=== PATIENT | male | born 1990 | race African-American/Black ===

== ENCOUNTER 2021-12-26 01:35 | Emergency (ER) | payer SELFPAY ==
[~2021-12-26] VITALS: Ht 167.6 cm; Wt 76.4 kg
[~2021-12-26 01:35] MED LIST: PRED20TA PO; PROAAER10 INH; ZITHTAB PO
[2021-12-26 01:40] VITALS: BP 128/77
[2021-12-26] MEDS ORDERED: IPRATROPIUM 0.5MG/ALBUTEROL 2.5MG INH SOL UD 3ML (DUONEB) NEB ONE (06:20)
[2021-12-26] MEDS ORDERED: ALBUTEROL 90 MCG/ACT 8GM HFA INHALER INH ONE (06:30)
== END 2021-12-26 06:58 | disposition home or self-care (01) ==
LOC: M ED 01:35
DX: J45.909 Unspecified asthma, uncomplicated (principal); F91.8 Other conduct disorders; Z91.010 Allergy to peanuts

== ENCOUNTER 2021-12-28 05:15 | Emergency (ER) | payer SELFPAY ==
[2021-12-28 06:00] VITALS: BP 116/67
[2021-12-28 06:11] LABS: BASO % 0.2 % (0.0-1.0); EOS # 0.1 10^3/uL (0.0-0.5); EOS % 0.8 % (0.0-3.0); HEMATOCRIT 46.3 % (42.0-52.0); HEMOGLOBIN 15.4 g/dl (13.5-17.5); LYMPH # 1.3 10^3/uL (1.5-5.0); LYMPH % 9.4 % (24.0-44.0); MEAN CORPUSCULAR HEMOGLOBIN 32.2 pg (27.0-33.0); MEAN CORPUSCULAR HGB CONC 33.3 g/dl (32.0-36.5); MEAN CORPUSCULAR VOLUME 96.9 fl (80.0-96.0); MONO # 0.9 10^3/uL (0.0-0.8); MONO % 6.2 % (2.0-8.0); NEUTROPHILS # 11.8 10^3/uL (1.5-8.5); PLATELET COUNT, AUTOMATED 228 10^3/uL (150-450); RED BLOOD COUNT 4.78 10^6/uL (4.30-6.10); WHITE BLOOD COUNT 14.2 10^3/uL (4.0-10.0)
[2021-12-28 06:23] LABS: BLOOD UREA NITROGEN 11 MG/DL (7-18); CALCIUM LEVEL 9.1 MG/DL (8.5-10.1); CARBON DIOXIDE LEVEL 26 MEQ/L (21-32); CHLORIDE LEVEL 107 MEQ/L (98-107); CREATININE FOR GFR 1.19 MG/DL (0.70-1.30); GLOMERULAR FILTRATION RATE > 60.0 (>60); GLUCOSE, FASTING 99 MG/DL (70-100); POTASSIUM SERUM 4.1 MEQ/L (3.5-5.1); SODIUM LEVEL 141 MEQ/L (136-145)
[2021-12-28 16:04] LABS: MAGNESIUM LEVEL 2.1 MG/DL (1.7-2.2)
== END 2021-12-28 07:25 | disposition home or self-care (01) ==
LOC: M ED 05:15 → EDBD 05:15 → M ED 07:25
DX: F19.10 Other psychoactive substance abuse, uncomplicated (principal); R00.0 Tachycardia, unspecified; J45.909 Unspecified asthma, uncomplicated; F12.10 Cannabis abuse, uncomplicated; Z91.010 Allergy to peanuts

== ENCOUNTER 2022-01-01 03:01 | Emergency (ER) | payer SELFPAY ==
[~2022-01-01] VITALS: Ht 167.6 cm; Wt 64.5 kg
[2022-01-01] MEDS ORDERED: LEVALBUTEROL HFA 45MCG/ACT 15 GM INHALER INH STA (07:19)
[2022-01-01] MEDS ORDERED: predniSONE 20 MG TAB PO ONE (07:20)
[2022-01-01 07:50] LABS: ABG HCO3 21.8 MEQ/L (22.0-26.0); ABG O2 SATURATION 95.9 % (95.0-99.0); ABG PARTIAL PRESSURE CO2 29.3 mmHg (35.0-45.0); ABG STANDARD HCO3 24.4 MEQ/L (22.0-26.0); ABG TOTAL CO2 22.7 MEQ/L (22.0-29.0)
[2022-01-01 10:28] LABS: AMPHETAMINES LEVEL URINE POSITIVE (NEGATIVE); BARBITURATES URINE NEGATIVE (NEGATIVE); BENZODIAZEPINES URINE NEGATIVE (NEGATIVE); CANNABINOIDS URINE POSITIVE (NEGATIVE); COCAINE METABOLITE URINE NEGATIVE (NEGATIVE); METHADONE URINE NEGATIVE (NEGATIVE); OPIATES URINE NEGATIVE (NEGATIVE); PHENCYCLIDINE URINE POSITIVE (NEGATIVE)
[2022-01-01] MEDS ORDERED: PRED20TA PO (10:39)
[2022-01-01] MEDS ORDERED: LEVAINH INH (10:39)
[2022-01-01 11:08] VITALS: BP 137/79
== END 2022-01-01 11:18 | disposition home or self-care (01) ==
LOC: M ED 03:01
DX: J45.901 Unspecified asthma with (acute) exacerbation (principal); R00.0 Tachycardia, unspecified; F17.200 Nicotine dependence, unspecified, uncomplicated; F19.10 Other psychoactive substance abuse, uncomplicated; Z91.010 Allergy to peanuts
CPT/HCPCS: 36600; 71046; 80307; 82803; 93005; 94640; 99284; J7512

== ENCOUNTER → 2022-01-22 | Outpatient (CLI) | payer OTHER ==
[~2022-01-22] MED LIST changes: +LEVAINH INH
== END ==
LOC: M WUC 10:15
PROVIDERS: ATTEND Surgery
DX: R68.84 Jaw pain (principal)

== ENCOUNTER 2022-04-23 21:50 | Inpatient (IN) | payer OTHER, SELFPAY ==
[~2022-04-23] VITALS: Ht 167.6 cm; Wt 68.2 kg
[2022-04-23 22:59] LABS: HEMATOCRIT 29.9 % (42.0-52.0); HEMOGLOBIN 10.2 g/dl (13.5-17.5); MEAN CORPUSCULAR HEMOGLOBIN 32.6 pg (27.0-33.0); MEAN CORPUSCULAR HGB CONC 34.1 g/dl (32.0-36.5); MEAN CORPUSCULAR VOLUME 95.5 fl (80.0-96.0); PLATELET COUNT, AUTOMATED 165 10^3/uL (150-450); RED BLOOD COUNT 3.13 10^6/uL (4.30-6.10); WHITE BLOOD COUNT 5.2 10^3/uL (4.0-10.0)
[2022-04-23 23:23] LABS: RSV AMPLIFICATION NEGATIVE (NEGATIVE)
[2022-04-23 23:24] LABS: ALT/SGPT 28 U/L (12-78); BILIRUBIN,DIRECT 0.1 MG/DL (0.0-0.2); BILIRUBIN,TOTAL 0.3 MG/DL (0.2-1.0); BLOOD UREA NITROGEN 6 MG/DL (7-18); CALCIUM LEVEL 8.4 MG/DL (8.5-10.1); CARBON DIOXIDE LEVEL 28 MEQ/L (21-32); CHLORIDE LEVEL 111 MEQ/L (98-107); CREATININE FOR GFR 0.88 MG/DL (0.70-1.30); GLOMERULAR FILTRATION RATE > 60.0 (>60); GLUCOSE, FASTING 122 MG/DL (70-100); POTASSIUM SERUM 3.5 MEQ/L (3.5-5.1); SODIUM LEVEL 145 MEQ/L (136-145)
[2022-04-23 23:25] LABS: ACETAMINOPHEN LEVEL 2.3 UG/ML (10.0-30.0); ALBUMIN 3.5 GM/DL (3.2-5.2); ETHYL ALCOHOL (ETHANOL) < 0.003 % (0.000-0.010); SALICYLATE LEVEL < 1.7 MG/DL (5.0-30.0); TOTAL PROTEIN 6.2 GM/DL (6.4-8.2)
[2022-04-24] MEDS ORDERED: CEPHALEXIN 500 MG CAP PO ONE (00:30)
[2022-04-24 01:17] LABS: AMPHETAMINES LEVEL URINE NEGATIVE (NEGATIVE); BARBITURATES URINE NEGATIVE (NEGATIVE); BENZODIAZEPINES URINE NEGATIVE (NEGATIVE); CANNABINOIDS URINE POSITIVE (NEGATIVE); COCAINE METABOLITE URINE NEGATIVE (NEGATIVE); METHADONE URINE NEGATIVE (NEGATIVE); OPIATES URINE NEGATIVE (NEGATIVE); PHENCYCLIDINE URINE POSITIVE (NEGATIVE)
[2022-04-24] MEDS ORDERED: LORazepam 2 MG TAB PO ONE (01:40)
[2022-04-24] MEDS ORDERED: HOME MED LIST COMPLETE! XX SCH ×2 (03:10→14:15)
[2022-04-24] MEDS ORDERED: SERO50TA PO (05:28)
[2022-04-24] MEDS ORDERED: ALBU2.5V10 INH (05:30)
[2022-04-24] MEDS ORDERED: ALBUTEROL 90 MCG/ACT 8GM HFA INHALER INH ONE (05:55)
[2022-04-24] MEDS ORDERED: CEPHALEXIN 500 MG CAP PO SCH (09:00)
[2022-04-24] MEDS ORDERED: MOM 30ML SUSPENSION UDC PO PRN (22:15)
[2022-04-24 22:50] VITALS: BP 143/82
[2022-04-25] MEDS: traZODone 50 MG TAB PO PRN ×2 (00:08→22:11)
[2022-04-25] MEDS: ALBUTEROL 90 MCG/ACT 8GM HFA INHALER INH PRN ×2 (00:08→23:55)
[2022-04-25] MEDS: CETIRIZINE (ZyrTEC) 10 MG TAB PO SCH ×2 (00:09→22:11)
[2022-04-25] MEDS: CEPHALEXIN 500 MG CAP PO SCH ×4 (00:09→22:11)
[2022-04-25] MEDS: OLANZapine ORAL DISINTEGRATING TAB 5MG PO PRN (00:14)
[2022-04-25] MEDS: ACETAMINOPHEN TAB 650MG DOSE (2X325MG) PO PRN ×2 (00:20→22:11)
[2022-04-26] MEDS: OLANZapine ORAL DISINTEGRATING TAB 5MG PO PRN ×2 (00:15→17:38)
[2022-04-26] MEDS ORDERED: LORazepam 1 MG TAB PO ONE (01:00)
[2022-04-26] MEDS: CEPHALEXIN 500 MG CAP PO SCH ×3 (09:30→21:55)
[2022-04-26] MEDS: traMADol 50 MG TAB PO PRN (17:29)
[2022-04-26] MEDS: ALBUTEROL 90 MCG/ACT 8GM HFA INHALER INH PRN ×2 (17:38→23:39)
[2022-04-26] MEDS: traZODone 50 MG TAB PO PRN (21:55)
[2022-04-26] MEDS: CETIRIZINE (ZyrTEC) 10 MG TAB PO SCH (21:55)
[2022-04-27 07:04] VITALS: BP 114/56
[2022-04-27] MEDS: CEPHALEXIN 500 MG CAP PO SCH ×3 (09:52→21:34)
[2022-04-27] MEDS: OLANZapine ORAL DISINTEGRATING TAB 5MG PO PRN ×2 (12:37→18:16)
[2022-04-27] MEDS: traMADol 50 MG TAB PO PRN ×2 (12:38→18:21)
[2022-04-27] MEDS: MAALOX 30 ML SUSP *UDC PO PRN (13:28)
[2022-04-27] MEDS: ACETAMINOPHEN TAB 650MG DOSE (2X325MG) PO PRN (13:31)
[2022-04-27 16:13] VITALS: BP 133/65
[2022-04-27] MEDS: ALBUTEROL 90 MCG/ACT 8GM HFA INHALER INH PRN (18:16)
[2022-04-27] MEDS: CETIRIZINE (ZyrTEC) 10 MG TAB PO SCH (21:34)
[2022-04-28 06:28] VITALS: BP 127/82
[2022-04-28] MEDS: CEPHALEXIN 500 MG CAP PO SCH ×2 (08:34→15:33)
[2022-04-28] MEDS: traMADol 50 MG TAB PO PRN ×2 (08:35→14:07)
[2022-04-28] MEDS ORDERED: LORazepam 1 MG TAB PO PRN (11:00)
[2022-04-28] MEDS ORDERED: hydrOXYzine 50 MG TAB PO PRN (11:00)
[2022-04-28 16:41] VITALS: BP 129/68
[2022-04-28] MEDS: CETIRIZINE (ZyrTEC) 10 MG TAB PO SCH (20:58)
[2022-04-28] MEDS: ACETAMINOPHEN TAB 650MG DOSE (2X325MG) PO PRN (21:00)
[2022-04-28] MEDS: ALBUTEROL 90 MCG/ACT 8GM HFA INHALER INH PRN (21:36)
[2022-04-29] MEDS: traMADol 50 MG TAB PO PRN (08:22)
[2022-04-29] MEDS: MAALOX 30 ML SUSP *UDC PO PRN (10:13)
[2022-04-29] MEDS ORDERED: VENTAER INH (13:04)
[2022-04-29] MEDS ORDERED: CETI10TA PO (13:04)
[2022-04-29] MEDS ORDERED: TRAM50TA2 PO (13:06)
== END 2022-04-29 14:20 | disposition home or self-care (01) | DRG 754 ==
LOC: EDBD 21:50 → EDSEX 21:50 → M ED 21:50 → M ED INP 04-24 22:14 → M PSY 04-24 22:50
PROVIDERS: ADMIT Psychiatry & Neurology Psychiatry; ATTEND Psychiatry & Neurology Psychiatry
DX: F32.A Depression, unspecified (principal); R45.851 Suicidal ideations; F12.90 Cannabis use, unspecified, uncomplicated; F60.2 Antisocial personality disorder; Z59.00 Homelessness unspecified; J45.909 Unspecified asthma, uncomplicated

== ENCOUNTER 2022-04-29 21:46 | Emergency (ER) | payer OTHER ==
[~2022-04-29] VITALS: Ht 167.6 cm; Wt 69.8 kg
[~2022-04-29 21:46] MED LIST changes: +ALBU2.5V10 INH; +CETI10TA PO; +SERO50TA PO; +TRAM50TA2 PO; +VENTAER INH
[2022-04-29 22:00] VITALS: BP 130/82
[2022-04-30 03:09] LABS: HEMATOCRIT 40.2 % (42.0-52.0); HEMOGLOBIN 13.1 g/dl (13.5-17.5); MEAN CORPUSCULAR HEMOGLOBIN 32.1 pg (27.0-33.0); MEAN CORPUSCULAR HGB CONC 32.6 g/dl (32.0-36.5); MEAN CORPUSCULAR VOLUME 98.5 fl (80.0-96.0); PLATELET COUNT, AUTOMATED 296 10^3/uL (150-450); RED BLOOD COUNT 4.08 10^6/uL (4.30-6.10); WHITE BLOOD COUNT 7.7 10^3/uL (4.0-10.0)
[2022-04-30 03:33] LABS: AMPHETAMINES LEVEL URINE NEGATIVE (NEGATIVE); BARBITURATES URINE NEGATIVE (NEGATIVE); BENZODIAZEPINES URINE NEGATIVE (NEGATIVE); CANNABINOIDS URINE NEGATIVE (NEGATIVE); COCAINE METABOLITE URINE NEGATIVE (NEGATIVE); METHADONE URINE NEGATIVE (NEGATIVE); OPIATES URINE NEGATIVE (NEGATIVE); PHENCYCLIDINE URINE POSITIVE (NEGATIVE)
[2022-04-30 03:41] LABS: RSV AMPLIFICATION NEGATIVE (NEGATIVE)
[2022-04-30 03:48] LABS: ACETAMINOPHEN LEVEL < 2.0 UG/ML (10.0-30.0); ALBUMIN 4.5 GM/DL (3.2-5.2); ALT/SGPT 81 U/L (12-78); BILIRUBIN,DIRECT 0.2 MG/DL (0.0-0.2); BILIRUBIN,TOTAL 0.5 MG/DL (0.2-1.0); BLOOD UREA NITROGEN 9 MG/DL (7-18); CALCIUM LEVEL 9.7 MG/DL (8.5-10.1); CARBON DIOXIDE LEVEL 31 MEQ/L (21-32); CHLORIDE LEVEL 105 MEQ/L (98-107); CREATININE FOR GFR 0.83 MG/DL (0.70-1.30); ETHYL ALCOHOL (ETHANOL) < 0.003 % (0.000-0.010); GLOMERULAR FILTRATION RATE > 60.0 (>60); GLUCOSE, FASTING 95 MG/DL (70-100); POTASSIUM SERUM 3.9 MEQ/L (3.5-5.1); SALICYLATE LEVEL < 1.7 MG/DL (5.0-30.0); SODIUM LEVEL 142 MEQ/L (136-145); TOTAL PROTEIN 7.8 GM/DL (6.4-8.2)
[2022-04-30] MEDS ORDERED: HOME MED LIST COMPLETE! XX SCH (05:40)
[2022-04-30] MEDS ORDERED: traMADol 50 MG TAB PO ONE (09:55)
== END 2022-04-30 12:00 | disposition home or self-care (01) ==
LOC: M ED 21:46
DX: F19.10 Other psychoactive substance abuse, uncomplicated (principal); Z76.5 Malingerer [conscious simulation]; R45.851 Suicidal ideations; F17.200 Nicotine dependence, unspecified, uncomplicated; Z91.010 Allergy to peanuts

== ENCOUNTER 2022-05-03 18:24 | Emergency (ER) | payer OTHER ==
[~2022-05-03] VITALS: Ht 170.2 cm; Wt 68.2 kg
[2022-05-03 19:32] LABS: HEMATOCRIT 38.9 % (42.0-52.0); HEMOGLOBIN 12.9 g/dl (13.5-17.5); MEAN CORPUSCULAR HEMOGLOBIN 32.3 pg (27.0-33.0); MEAN CORPUSCULAR HGB CONC 33.2 g/dl (32.0-36.5); MEAN CORPUSCULAR VOLUME 97.3 fl (80.0-96.0); PLATELET COUNT, AUTOMATED 300 10^3/uL (150-450); WHITE BLOOD COUNT 7.6 10^3/uL (4.0-10.0)
[2022-05-03 19:56] LABS: AMPHETAMINES LEVEL URINE NEGATIVE (NEGATIVE); BARBITURATES URINE NEGATIVE (NEGATIVE); BENZODIAZEPINES URINE NEGATIVE (NEGATIVE); CANNABINOIDS URINE NEGATIVE (NEGATIVE); COCAINE METABOLITE URINE NEGATIVE (NEGATIVE); METHADONE URINE NEGATIVE (NEGATIVE); OPIATES URINE NEGATIVE (NEGATIVE); PHENCYCLIDINE URINE NEGATIVE (NEGATIVE)
[2022-05-03 20:12] LABS: ACETAMINOPHEN LEVEL < 2.0 UG/ML (10.0-30.0); ALBUMIN 4.1 GM/DL (3.2-5.2); ALT/SGPT 61 U/L (12-78); BILIRUBIN,DIRECT 0.1 MG/DL (0.0-0.2); BILIRUBIN,TOTAL 0.4 MG/DL (0.2-1.0); BLOOD UREA NITROGEN 11 MG/DL (7-18); CALCIUM LEVEL 9.2 MG/DL (8.5-10.1); CARBON DIOXIDE LEVEL 26 MEQ/L (21-32); CHLORIDE LEVEL 110 MEQ/L (98-107); ETHYL ALCOHOL (ETHANOL) < 0.003 % (0.000-0.010); GLOMERULAR FILTRATION RATE > 60.0 (>60); GLUCOSE, FASTING 86 MG/DL (70-100); POTASSIUM SERUM 4.1 MEQ/L (3.5-5.1); SALICYLATE LEVEL < 1.7 MG/DL (5.0-30.0); SODIUM LEVEL 143 MEQ/L (136-145); TOTAL PROTEIN 7.4 GM/DL (6.4-8.2)
[2022-05-03] MEDS ORDERED: ACETAMINOPHEN 500 MG TAB PO ONE (21:10)
[2022-05-03] MEDS ORDERED: HOME MED LIST COMPLETE! XX SCH (21:40)
[2022-05-04] MEDS ORDERED: CETI-24 (01:19)
[2022-05-04] MEDS ORDERED: ALBU8.5H (01:19)
[2022-05-04] MEDS ORDERED: ALBUTEROL 90 MCG/ACT 8GM HFA INHALER INH PRN (01:25)
[2022-05-04] MEDS ORDERED: LORazepam 2 MG/ML VIAL IM ONE (01:35)
[2022-05-04] MEDS ORDERED: HALOPERIDOL 5MG/ML VIAL (J1630 PER 1) IM ONE (01:35)
[2022-05-04] MEDS ORDERED: diphenhydrAMINE 50MG/ML VIAL (J1200) IM ONE (01:35)
[2022-05-04 06:03] LABS: RSV AMPLIFICATION NEGATIVE (NEGATIVE)
[2022-05-04 14:59] VITALS: BP 109/62
[2022-05-04] MEDS ORDERED: ALBU8.5H INH (23:37)
[2022-05-04] MEDS ORDERED: CETI-24 PO (23:37)
[2022-05-04] MEDS ORDERED: TRAM50TA2 PO (23:37)
== END 2022-05-04 15:04 | disposition home or self-care (01) ==
LOC: M ED 18:24
DX: F60.2 Antisocial personality disorder (principal); Z76.5 Malingerer [conscious simulation]; J45.909 Unspecified asthma, uncomplicated; F17.200 Nicotine dependence, unspecified, uncomplicated; F98.8 Other specified behavioral and emotional disorders with onset usually occurring in childhood and adolescence; Z79.899 Other long term (current) drug therapy; Z91.010 Allergy to peanuts
CPT/HCPCS: 80048; 80076; 80143; 80307; 82077; 84443; 85027; 87631; 96372; 99285; J1200; J1630; J2060

== ENCOUNTER 2022-05-04 19:56 | Inpatient (IN) | payer OTHER ==
[~2022-05-04] VITALS: Ht 170.2 cm; Wt 68.0 kg
[~2022-05-04 19:56] MED LIST changes: +ALBU8.5H; +CETI-24
[2022-05-04 22:05] LABS: HEMATOCRIT 39.1 % (42.0-52.0); HEMOGLOBIN 13.1 g/dl (13.5-17.5); MEAN CORPUSCULAR HEMOGLOBIN 32.8 pg (27.0-33.0); MEAN CORPUSCULAR HGB CONC 33.5 g/dl (32.0-36.5); MEAN CORPUSCULAR VOLUME 97.8 fl (80.0-96.0); PLATELET COUNT, AUTOMATED 291 10^3/uL (150-450); WHITE BLOOD COUNT 6.9 10^3/uL (4.0-10.0)
[2022-05-04 22:23] LABS: AMPHETAMINES LEVEL URINE NEGATIVE (NEGATIVE); BARBITURATES URINE NEGATIVE (NEGATIVE); BENZODIAZEPINES URINE NEGATIVE (NEGATIVE); CANNABINOIDS URINE NEGATIVE (NEGATIVE); COCAINE METABOLITE URINE NEGATIVE (NEGATIVE); METHADONE URINE NEGATIVE (NEGATIVE); OPIATES URINE NEGATIVE (NEGATIVE); PHENCYCLIDINE URINE NEGATIVE (NEGATIVE)
[2022-05-04 22:36] LABS: ACETAMINOPHEN LEVEL < 2.0 UG/ML (10.0-30.0); ALBUMIN 3.9 GM/DL (3.2-5.2); ALT/SGPT 61 U/L (12-78); BILIRUBIN,DIRECT 0.2 MG/DL (0.0-0.2); BILIRUBIN,TOTAL 0.2 MG/DL (0.2-1.0); BLOOD UREA NITROGEN 12 MG/DL (7-18); CALCIUM LEVEL 9.1 MG/DL (8.5-10.1); CARBON DIOXIDE LEVEL 27 MEQ/L (21-32); CHLORIDE LEVEL 107 MEQ/L (98-107); CREATININE FOR GFR 0.98 MG/DL (0.70-1.30); ETHYL ALCOHOL (ETHANOL) 0.219 % (0.000-0.010); GLOMERULAR FILTRATION RATE > 60.0 (>60); GLUCOSE, FASTING 77 MG/DL (70-100); POTASSIUM SERUM 4.2 MEQ/L (3.5-5.1); SALICYLATE LEVEL 1.7 MG/DL (5.0-30.0); SODIUM LEVEL 142 MEQ/L (136-145); TOTAL PROTEIN 7.1 GM/DL (6.4-8.2)
[2022-05-04 22:39] LABS: CK-MB VALUE MASS 6.7 NG/ML (<3.6); MB/CK RELATIVE INDEX 0.29 (< OR =4)
[2022-05-04] MEDS ORDERED: NS 1,000 ML IV SCH (23:15)
[2022-05-04] MEDS ORDERED: CETI-24 PO (23:37)
[2022-05-04] MEDS ORDERED: ALBU8.5H INH (23:37)
[2022-05-04] MEDS ORDERED: TRAM50TA2 PO (23:37)
[2022-05-04] MEDS ORDERED: HOME MED LIST COMPLETE! XX SCH (23:40)
[2022-05-05] MEDS ORDERED: LORazepam 2 MG TAB PO PRN (00:15)
[2022-05-05] MEDS: THIAMINE 100 MG TAB PO SCH ×3 (00:55→20:30)
[2022-05-05 01:35] LABS: RSV AMPLIFICATION NEGATIVE (NEGATIVE)
[2022-05-05] MEDS ORDERED: CALCIUM CARBONATE 500 MG CHEW U/D PO PRN (02:00)
[2022-05-05 02:05] VITALS: BP 139/104
[2022-05-05] MEDS ORDERED: NS 1,000 ML IV SCH (02:45)
[2022-05-05 06:00] VITALS: BP 116/82
[2022-05-05 06:12] LABS: APPEARANCE, URINE CLEAR (CLEAR); BACTERIA, URINE AUTO NEGATIVE (NEGATIVE); BILIRUBIN, URINE AUTO NEGATIVE (NEGATIVE); BLOOD, URINE BLOOD NEGATIVE (NEGATIVE); COLOR, URINE YELLOW (YELLOW); GLUCOSE, URINE (UA) AUTO NEGATIVE (NEGATIVE); KETONE, URINE AUTO TRACE mg/dL (NEGATIVE); LEUKOCYTE ESTERASE, URINE AUTO 1+ (NEGATIVE); NITRITE, URINE AUTO NEGATIVE (NEGATIVE); PROTEIN, URINE AUTO NEGATIVE (NEGATIVE); RBC, URINE AUTO 1 /HPF (0-3); SPECIFIC GRAVITY URINE AUTO 1.014 (1.002-1.035); SQUAMOUS EPITHELIAL CELL UR AU 0 /HPF (0-6); UROBILINOGEN, URINE AUTO 0.2 mg/dL (0.0-2.0); WBC, URINE AUTO 10 /HPF (0-3)
[2022-05-05 06:30] LABS: BLOOD UREA NITROGEN 8 MG/DL (7-18); CALCIUM LEVEL 8.9 MG/DL (8.5-10.1); CARBON DIOXIDE LEVEL 25 MEQ/L (21-32); CHLORIDE LEVEL 109 MEQ/L (98-107); CREATININE FOR GFR 0.76 MG/DL (0.70-1.30); GLOMERULAR FILTRATION RATE > 60.0 (>60); GLUCOSE, FASTING 99 MG/DL (70-100); POTASSIUM SERUM 3.5 MEQ/L (3.5-5.1); SODIUM LEVEL 143 MEQ/L (136-145)
[2022-05-05 08:00] VITALS: BP 116/82
[2022-05-05] MEDS: MULTIVITAMINS/MINERALS THERAP 1 TAB PO SCH (08:32)
[2022-05-05] MEDS: FOLIC ACID 1 MG TAB PO SCH (08:32)
[2022-05-05 11:02] LABS: C REACTIVE PROTEIN QUANTITATIV 1.15 MG/DL (0.00-0.30)
[2022-05-05 11:04] LABS: HEMATOCRIT 37.7 % (42.0-52.0); HEMOGLOBIN 12.4 g/dl (13.5-17.5); MEAN CORPUSCULAR HEMOGLOBIN 32.3 pg (27.0-33.0); MEAN CORPUSCULAR HGB CONC 32.9 g/dl (32.0-36.5); MEAN CORPUSCULAR VOLUME 98.2 fl (80.0-96.0); PLATELET COUNT, AUTOMATED 296 10^3/uL (150-450); RED BLOOD COUNT 3.84 10^6/uL (4.30-6.10); WHITE BLOOD COUNT 5.9 10^3/uL (4.0-10.0)
[2022-05-05 11:26] LABS: ERYTHROCYTE SEDIMENTATION RATE 6 mm/hr (0-15)
[2022-05-05] MEDS: NS 1,000 ML IV SCH ×2 (13:43→20:31)
[2022-05-05 14:00] VITALS: BP 119/77
[2022-05-05] MEDS: ACETAMINOPHEN TAB 650MG DOSE (2X325MG) PO PRN (14:55)
[2022-05-05] MEDS: traMADol 50 MG TAB PO PRN (14:55)
[2022-05-05] MEDS: PERCOCET 5MG/325MG TAB PO PRN ×2 (16:27→23:07)
[2022-05-05 20:34] VITALS: BP 142/95
[2022-05-05 22:00] VITALS: BP 142/95
[2022-05-06] VITALS (10 sets, daily range): BP systolic 119–139; BP diastolic 70–97
[2022-05-06 06:03] LABS: HEMATOCRIT 35.2 % (42.0-52.0); HEMOGLOBIN 11.8 g/dl (13.5-17.5); MEAN CORPUSCULAR HEMOGLOBIN 33.1 pg (27.0-33.0); MEAN CORPUSCULAR HGB CONC 33.5 g/dl (32.0-36.5); MEAN CORPUSCULAR VOLUME 98.6 fl (80.0-96.0); PLATELET COUNT, AUTOMATED 250 10^3/uL (150-450); RED BLOOD COUNT 3.57 10^6/uL (4.30-6.10); WHITE BLOOD COUNT 5.7 10^3/uL (4.0-10.0)
[2022-05-06 06:32] LABS: ALBUMIN 3.3 GM/DL (3.2-5.2); ALT/SGPT 44 U/L (12-78); BILIRUBIN,TOTAL 0.2 MG/DL (0.2-1.0); BLOOD UREA NITROGEN 9 MG/DL (7-18); CALCIUM LEVEL 7.8 MG/DL (8.5-10.1); CARBON DIOXIDE LEVEL 25 MEQ/L (21-32); CHLORIDE LEVEL 113 MEQ/L (98-107); CREATININE FOR GFR 0.63 MG/DL (0.70-1.30); GLOMERULAR FILTRATION RATE > 60.0 (>60); GLUCOSE, FASTING 79 MG/DL (70-100); POTASSIUM SERUM 3.9 MEQ/L (3.5-5.1); SODIUM LEVEL 142 MEQ/L (136-145); TOTAL PROTEIN 5.9 GM/DL (6.4-8.2)
[2022-05-06] MEDS ORDERED: INFLUENZA QUADRIVALENT PF VACCINE 0.5ML SYRINGE IM.IMMUN ONE (09:00)
[2022-05-06] MEDS: THIAMINE 100 MG TAB PO SCH ×2 (09:07→20:15)
[2022-05-06] MEDS: NS 1,000 ML IV SCH ×2 (09:07→16:51)
[2022-05-06] MEDS: FOLIC ACID 1 MG TAB PO SCH (09:07)
[2022-05-06] MEDS: MULTIVITAMINS/MINERALS THERAP 1 TAB PO SCH (09:07)
[2022-05-06] MEDS: PERCOCET 5MG/325MG TAB PO PRN ×2 (09:09→21:39)
[2022-05-06] MEDS ORDERED: cefTRIAXone SOD 1 GM in D5W MINI-BAG PLUS 50 ML IV SCH (11:00)
[2022-05-06 11:24] LABS: GC DNA AMPLIFICATION POSITIVE (NEGATIVE)
[2022-05-06] MEDS ORDERED: MIDAZOLAM INJ 2MG/2ML VIAL (J2250 PER 1MG) As Ordered ONE (11:47)
[2022-05-06] MEDS ORDERED: fentaNYL 100 MCG/2 ML INJECTION As Ordered ONE (11:49)
[2022-05-06] MEDS ORDERED: propofoL 200 MG/20 ML VIAL As Ordered ONE (11:50)
[2022-05-06] MEDS ORDERED: LIDOCAINE 2% 100MG/5ML SDV (FOR ANES.) As Ordered ONE (11:51)
[2022-05-06] MEDS ORDERED: ONDANSETRON 4MG/2ML VIAL As Ordered ONE (12:18)
[2022-05-06] MEDS ORDERED: dexameTHASONE 4 MG/ML 1ML VIAL (J1100 PER 1MG) As Ordered ONE (12:18)
[2022-05-06] MEDS ORDERED: BUPIVACAINE HCL 0.5% 30ML VIAL As Ordered ONE (13:33)
[2022-05-06] MEDS ORDERED: ceFAZolin 2 GM/D5W 50 ML IV BAG (J0690 PER 500MG) As Ordered ONE (13:38)
[2022-05-06] MEDS ORDERED: ACETAMINOPHEN 1000MG 100ML IV BTL (OFIRMEV) (J0131 PER 10MG) As Ordered ONE (15:06)
[2022-05-06] MEDS ORDERED: KETOROLAC 60MG 2ML VIAL As Ordered ONE (15:08)
[2022-05-06] MEDS ORDERED: ONDANSETRON 4MG/2ML VIAL IV PRN (15:15)
[2022-05-06] MEDS ORDERED: LR 1,000 ML IV SCH (15:15)
[2022-05-06] MEDS ORDERED: fentaNYL 100 MCG/2 ML INJECTION IV PRN (15:15)
[2022-05-06] MEDS ORDERED: oxyCODONE 5MG TAB PO PRN (15:15)
[2022-05-06] MEDS ORDERED: ACETAMINOPHEN TAB 650MG DOSE (2X325MG) PO PRN (15:45)
[2022-05-06] MEDS: ACETAMINOPHEN TAB 650MG DOSE (2X325MG) PO PRN (17:26)
[2022-05-06] MEDS: IBUPROFEN 600MG TAB PO PRN (17:26)
[2022-05-06] MEDS: KETOROLAC 30 MG/ML 1ML VIAL IV SCH (20:14)
[2022-05-06] MEDS ORDERED: LORazepam 0.5 MG TAB PO ONE (21:05)
[2022-05-06] MEDS: ceFAZolin SOD 1 GM in D5W MINI-BAG PLUS 50 ML IV SCH (21:38)
[2022-05-07 02:00] VITALS: BP 102/50
[2022-05-07] MEDS: KETOROLAC 30 MG/ML 1ML VIAL IV SCH ×2 (03:04→09:02)
[2022-05-07] MEDS: ceFAZolin SOD 1 GM in D5W MINI-BAG PLUS 50 ML IV SCH (05:42)
[2022-05-07] MEDS: PERCOCET 5MG/325MG TAB PO PRN ×3 (05:42→18:01)
[2022-05-07 05:54] LABS: HEMATOCRIT 36.1 % (42.0-52.0); HEMOGLOBIN 12.1 g/dl (13.5-17.5); MEAN CORPUSCULAR HEMOGLOBIN 32.3 pg (27.0-33.0); MEAN CORPUSCULAR HGB CONC 33.5 g/dl (32.0-36.5); MEAN CORPUSCULAR VOLUME 96.3 fl (80.0-96.0); PLATELET COUNT, AUTOMATED 283 10^3/uL (150-450); RED BLOOD COUNT 3.75 10^6/uL (4.30-6.10); WHITE BLOOD COUNT 9.4 10^3/uL (4.0-10.0)
[2022-05-07 06:00] VITALS: BP 119/64
[2022-05-07 06:18] LABS: ALBUMIN 3.2 GM/DL (3.2-5.2); ALT/SGPT 37 U/L (12-78); BILIRUBIN,TOTAL 0.2 MG/DL (0.2-1.0); BLOOD UREA NITROGEN 10 MG/DL (7-18); CALCIUM LEVEL 8.1 MG/DL (8.5-10.1); CARBON DIOXIDE LEVEL 26 MEQ/L (21-32); CHLORIDE LEVEL 109 MEQ/L (98-107); CREATININE FOR GFR 0.73 MG/DL (0.70-1.30); GLOMERULAR FILTRATION RATE > 60.0 (>60); GLUCOSE, FASTING 99 MG/DL (70-100); POTASSIUM SERUM 3.8 MEQ/L (3.5-5.1); SODIUM LEVEL 141 MEQ/L (136-145)
[2022-05-07] MEDS: MULTIVITAMINS/MINERALS THERAP 1 TAB PO SCH (09:02)
[2022-05-07] MEDS: THIAMINE 100 MG TAB PO SCH (09:02)
[2022-05-07] MEDS: FOLIC ACID 1 MG TAB PO SCH (09:02)
[2022-05-07 10:00] VITALS: BP 109/65
[2022-05-07 15:00] VITALS: BP 109/65
[2022-05-07] MEDS: traMADol 50 MG TAB PO PRN ×2 (15:58→23:14)
[2022-05-07] MEDS: IBUPROFEN 600MG TAB PO PRN (18:41)
[2022-05-07 22:00] VITALS: BP 111/71
[2022-05-08 05:38] LABS: HEMATOCRIT 38.7 % (42.0-52.0); HEMOGLOBIN 12.7 g/dl (13.5-17.5); MEAN CORPUSCULAR HEMOGLOBIN 31.8 pg (27.0-33.0); MEAN CORPUSCULAR HGB CONC 32.8 g/dl (32.0-36.5); PLATELET COUNT, AUTOMATED 268 10^3/uL (150-450); RED BLOOD COUNT 3.99 10^6/uL (4.30-6.10); WHITE BLOOD COUNT 5.3 10^3/uL (4.0-10.0)
[2022-05-08 06:00] VITALS: BP_SYST 118; BP_SYST 122; BP_DIAS 55; BP_DIAS 66
[2022-05-08 06:02] LABS: ALBUMIN 3.3 GM/DL (3.2-5.2); ALT/SGPT 38 U/L (12-78); BILIRUBIN,TOTAL 0.2 MG/DL (0.2-1.0); BLOOD UREA NITROGEN 10 MG/DL (7-18); CALCIUM LEVEL 8.7 MG/DL (8.5-10.1); CARBON DIOXIDE LEVEL 27 MEQ/L (21-32); CHLORIDE LEVEL 110 MEQ/L (98-107); CREATININE FOR GFR 0.72 MG/DL (0.70-1.30); GLOMERULAR FILTRATION RATE > 60.0 (>60); GLUCOSE, FASTING 94 MG/DL (70-100); POTASSIUM SERUM 3.9 MEQ/L (3.5-5.1); SODIUM LEVEL 144 MEQ/L (136-145)
[2022-05-08] MEDS ORDERED: VITMTA PO (07:31)
[2022-05-08] MEDS ORDERED: THIA100T7 PO (07:31)
[2022-05-08] MEDS ORDERED: FOLI1TAB11 PO (07:31)
[2022-05-08] MEDS ORDERED: ACET1TAB55 PO (07:39)
[2022-05-08] MEDS: FOLIC ACID 1 MG TAB PO SCH (08:50)
[2022-05-08] MEDS: PERCOCET 5MG/325MG TAB PO PRN (08:50)
[2022-05-08] MEDS: MULTIVITAMINS/MINERALS THERAP 1 TAB PO SCH (08:50)
== END 2022-05-08 09:20 | disposition home or self-care (01) | DRG 316 ==
LOC: M ED 19:56 → M ED INP 05-05 00:15 → ENRESERV 05-05 01:39 → M MS5PR 05-05 02:02
PROVIDERS: ADMIT Internal Medicine; ATTEND Internal Medicine
PROC: 0LM80ZZ Reattachment of Left Hand Tendon, Open Approach (ICD-10-PCS; 2022-05-06)
PROC: 0LQ80ZZ Repair Left Hand Tendon, Open Approach (ICD-10-PCS; principal; 2022-05-06 12:00)
DX: S56.522A Laceration of other extensor muscle, fascia and tendon at forearm level, left arm, initial encounter (principal); M62.82 Rhabdomyolysis; R45.851 Suicidal ideations; S51.812A Laceration without foreign body of left forearm, initial encounter; S51.012A Laceration without foreign body of left elbow, initial encounter; R07.89 Other chest pain; F10.129 Alcohol abuse with intoxication, unspecified; Z79.899 Other long term (current) drug therapy; Z20.822 Contact with and (suspected) exposure to COVID-19; Z91.010 Allergy to peanuts; F32.A Depression, unspecified; J45.909 Unspecified asthma, uncomplicated; X78.9XXA Intentional self-harm by unspecified sharp object, initial encounter; Y92.9 Unspecified place or not applicable; A54.09 Other gonococcal infection of lower genitourinary tract; Z76.5 Malingerer [conscious simulation]; F60.2 Antisocial personality disorder; F98.8 Other specified behavioral and emotional disorders with onset usually occurring in childhood and adolescence

== ENCOUNTER 2023-02-24 13:15 | Emergency (ER) | payer OTHER ==
[~2023-02-24] VITALS: Ht 172.7 cm; Wt 84.1 kg
[~2023-02-24 13:15] MED LIST changes: +ACET1TAB55 PO; +ALBU8.5H INH; +CETI-24 PO; +FOLI1TAB11 PO; +THIA100T7 PO; +VITMTA PO
[2023-02-24 13:30] VITALS: BP 148/79
[2023-02-24 14:44] LABS: HEMATOCRIT 39.4 % (42.0-52.0); HEMOGLOBIN 13.5 g/dl (13.5-17.5); MEAN CORPUSCULAR HEMOGLOBIN 31.2 pg (27.0-33.0); MEAN CORPUSCULAR HGB CONC 34.3 g/dl (32.0-36.5); PLATELET COUNT, AUTOMATED 200 10^3/uL (150-450); RED BLOOD COUNT 4.33 10^6/uL (4.30-6.10)
[2023-02-24 15:06] LABS: AMPHETAMINES LEVEL URINE NEGATIVE (NEGATIVE); BENZODIAZEPINES URINE NEGATIVE (NEGATIVE)
[2023-02-24 15:07] LABS: BARBITURATES URINE NEGATIVE (NEGATIVE); COCAINE METABOLITE URINE NEGATIVE (NEGATIVE); METHADONE URINE NEGATIVE (NEGATIVE); OPIATES URINE NEGATIVE (NEGATIVE)
[2023-02-24 15:09] LABS: ETHYL ALCOHOL (ETHANOL) < 0.003 % (0.000-0.010)
[2023-02-24 15:11] LABS: ACETAMINOPHEN LEVEL < 2.0 UG/ML (10.0-20.0); ALBUMIN 4.2 G/DL (3.2-5.2); ALKALINE PHOSPHATASE 80 U/L (46-116); ALT/SGPT 67 U/L (7.0-40); AST/SGOT 95 U/L (<34); BILIRUBIN,DIRECT 0.3 MG/DL (<0.4); BILIRUBIN,TOTAL 0.6 MG/DL (0.3-1.2); BLOOD UREA NITROGEN 12 MG/DL (9-23); CALCIUM LEVEL 8.8 MG/DL (8.5-10.1); CARBON DIOXIDE LEVEL 26 MMOL/L (20-31); CHLORIDE LEVEL 103 MMOL/L (98-107); CREATININE FOR GFR 0.65 MG/DL (0.70-1.30); GLOMERULAR FILTRATION RATE > 60.0 (>60); GLUCOSE, FASTING 115 MG/DL (60-100); POTASSIUM SERUM 4.1 MMOL/L (3.5-5.1); SALICYLATE LEVEL < 3.0 MG/DL (<30); SODIUM LEVEL 140 MMOL/L (136-145); TOTAL PROTEIN 7.1 G/DL (5.7-8.2)
[2023-02-24 15:12] LABS: CANNABINOIDS URINE POSITIVE (NEGATIVE); PHENCYCLIDINE URINE POSITIVE (NEGATIVE)
[2023-02-24 15:13] LABS: THYROID STIMULATING HORMONE 0.953 uIU/ML (0.55-4.78)
== END 2023-02-24 17:17 | disposition home or self-care (01) ==
LOC: M ED 13:15 → EDBD 13:15 → M ED 17:17
DX: F60.9 Personality disorder, unspecified (principal); F19.10 Other psychoactive substance abuse, uncomplicated; Z76.5 Malingerer [conscious simulation]; F66 Other sexual disorders

== ENCOUNTER 2023-05-25 23:09 | Emergency (ER) | payer OTHER ==
[~2023-05-25] VITALS: Ht 167.6 cm; Wt 86.9 kg
[2023-05-25] MEDS ORDERED: ALBUTEROL SULFATE 2.5MG/0.5ML INH NEB SOLN NEB ONE (23:55)
[2023-05-25] MEDS ORDERED: predniSONE 20 MG TAB PO ONE (23:55)
[2023-05-25 23:58] LABS: BASO % 0.6 % (0.0-1.0); EOS # 0.2 10^3/uL (0.0-0.5); HEMATOCRIT 44.8 % (42.0-52.0); HEMOGLOBIN 15.3 g/dl (13.5-17.5); LYMPH # 2.7 10^3/uL (1.5-5.0); LYMPH % 51.4 % (24.0-44.0); MEAN CORPUSCULAR HEMOGLOBIN 30.9 pg (27.0-33.0); MEAN CORPUSCULAR HGB CONC 34.2 g/dl (32.0-36.5); MEAN CORPUSCULAR VOLUME 90.5 fl (80.0-96.0); MONO # 0.5 10^3/uL (0.0-0.8); MONO % 8.7 % (2.0-8.0); NEUTROPHILS # 1.9 10^3/uL (1.5-8.5); NEUTROPHILS % 35.1 % (36.0-66.0); PLATELET COUNT, AUTOMATED 264 10^3/uL (150-450); RED BLOOD COUNT 4.95 10^6/uL (4.30-6.10); WHITE BLOOD COUNT 5.3 10^3/uL (4.0-10.0)
[2023-05-26 00:06] VITALS: BP 145/81
[2023-05-26 00:11] VITALS: TEMP 99
[2023-05-26 00:21] LABS: CK-MB VALUE MASS < 1.0 NG/ML (<3.6)
[2023-05-26 00:23] LABS: ALBUMIN 4.2 G/DL (3.2-5.2); ALKALINE PHOSPHATASE 88 U/L (46-116); ALT/SGPT 34 U/L (7.0-40); AST/SGOT 18 U/L (<34); BILIRUBIN,TOTAL 0.3 MG/DL (0.3-1.2); BLOOD UREA NITROGEN 7 MG/DL (9-23); CALCIUM LEVEL 8.5 MG/DL (8.5-10.1); CARBON DIOXIDE LEVEL 28 MMOL/L (20-31); CHLORIDE LEVEL 108 MMOL/L (98-107); CPK CREATINE PHOSPHOKINASE 130 U/L (46-171); CREATININE FOR GFR 0.79 MG/DL (0.70-1.30); GLOMERULAR FILTRATION RATE > 60.0 (>60); GLUCOSE, FASTING 102 MG/DL (60-100); MB/CK RELATIVE INDEX 0.76 (< OR =4); POTASSIUM SERUM 3.8 MMOL/L (3.5-5.1); SODIUM LEVEL 145 MMOL/L (136-145); TOTAL PROTEIN 6.8 G/DL (5.7-8.2)
[2023-05-26 01:16] LABS: RSV AMPLIFICATION NEGATIVE (NEGATIVE)
[2023-05-26 01:45] VITALS: O2SAT 96
[2023-05-26 01:47] LABS: CK-MB VALUE MASS < 1.0 NG/ML (<3.6)
[2023-05-26] MEDS ORDERED: MAALOX 30 ML SUSP *UDC PO ONE (01:50)
[2023-05-26 01:51] LABS: CPK CREATINE PHOSPHOKINASE 148 U/L (46-171); MB/CK RELATIVE INDEX 0.67 (< OR =4)
[2023-05-26] MEDS ORDERED: PRED20TA PO (01:53)
[2023-05-26] MEDS ORDERED: ALBU6.7H6 INH (01:53)
== END 2023-05-26 02:07 | disposition home or self-care (01) ==
LOC: M ED 23:09 → EDBD 23:09 → M ED 05-26 02:07
DX: R07.89 Other chest pain (principal); J45.909 Unspecified asthma, uncomplicated; R20.2 Paresthesia of skin; N52.9 Male erectile dysfunction, unspecified; Z91.010 Allergy to peanuts; Z79.51 Long term (current) use of inhaled steroids
CPT/HCPCS: 36415; 71045; 80053; 82550; 82553; 85025; 87631; 93005; 94640; 99284; J7512

== ENCOUNTER 2023-05-27 10:28 | Emergency (ER) | payer OTHER ==
[~2023-05-27] VITALS: Ht 170.2 cm; Wt 72.7 kg
[~2023-05-27 10:28] MED LIST changes: +ALBU6.7H6 INH
[2023-05-27 10:39] VITALS: BP 122/78; TEMP 98; O2SAT 97
[2023-05-27] MEDS ORDERED: SUCRALFATE SUSP 1GM/10ML UD PO ONE (10:50)
[2023-05-27 11:44] LABS: BLOOD UREA NITROGEN 13 MG/DL (9-23); CALCIUM LEVEL 8.6 MG/DL (8.5-10.1); CARBON DIOXIDE LEVEL 28 MMOL/L (20-31); CHLORIDE LEVEL 107 MMOL/L (98-107); CREATININE FOR GFR 0.88 MG/DL (0.70-1.30); GLOMERULAR FILTRATION RATE > 60.0 (>60); GLUCOSE, FASTING 107 MG/DL (60-100); SODIUM LEVEL 139 MMOL/L (136-145)
== END 2023-05-27 12:55 | disposition home or self-care (01) ==
LOC: M ED 10:28 → EDBD 10:28 → M ED 12:55
DX: R07.9 Chest pain, unspecified (principal); Z53.9 Procedure and treatment not carried out, unspecified reason; J45.909 Unspecified asthma, uncomplicated; Z91.010 Allergy to peanuts

== ENCOUNTER 2023-05-27 15:57 | Emergency (ER) | payer OTHER ==
[~2023-05-27] VITALS: Ht 170.2 cm; Wt 72.7 kg
[2023-05-27 16:11] VITALS: BP 129/72; TEMP 97.7; O2SAT 96
[2023-05-27 17:51] LABS: CK-MB VALUE MASS < 1.0 NG/ML (<3.6)
[2023-05-27 17:54] LABS: CPK CREATINE PHOSPHOKINASE 133 U/L (46-171); MB/CK RELATIVE INDEX 0.75 (< OR =4)
== END 2023-05-27 18:37 | disposition home or self-care (01) ==
LOC: M ED 15:57 → EDBD 15:57 → M ED 18:37
DX: R07.9 Chest pain, unspecified (principal); J45.909 Unspecified asthma, uncomplicated; Z91.010 Allergy to peanuts

== ENCOUNTER 2023-06-03 19:23 | Emergency (ER) | payer OTHER ==
[2023-06-03 19:40] VITALS: BP 132/86; TEMP 98.6; O2SAT 96
[2023-06-03 20:16] LABS: HEMATOCRIT 47.6 % (42.0-52.0); HEMOGLOBIN 16.1 g/dl (13.5-17.5); MEAN CORPUSCULAR HEMOGLOBIN 30.8 pg (27.0-33.0); MEAN CORPUSCULAR HGB CONC 33.8 g/dl (32.0-36.5); MEAN CORPUSCULAR VOLUME 91.2 fl (80.0-96.0); PLATELET COUNT, AUTOMATED 242 10^3/uL (150-450); RED BLOOD COUNT 5.22 10^6/uL (4.30-6.10); WHITE BLOOD COUNT 6.8 10^3/uL (4.0-10.0)
[2023-06-03 20:38] LABS: PHENCYCLIDINE URINE NEGATIVE (NEGATIVE)
[2023-06-03 20:39] LABS: AMPHETAMINES LEVEL URINE NEGATIVE (NEGATIVE); BARBITURATES URINE NEGATIVE (NEGATIVE); BENZODIAZEPINES URINE NEGATIVE (NEGATIVE); COCAINE METABOLITE URINE NEGATIVE (NEGATIVE); METHADONE URINE NEGATIVE (NEGATIVE); OPIATES URINE NEGATIVE (NEGATIVE)
[2023-06-03 20:40] LABS: CANNABINOIDS URINE POSITIVE (NEGATIVE)
[2023-06-03 21:11] LABS: ETHYL ALCOHOL (ETHANOL) 0.151 % (0.000-0.010)
[2023-06-03 21:12] LABS: ACETAMINOPHEN LEVEL < 2.0 UG/ML (10.0-20.0); SALICYLATE LEVEL < 3.0 MG/DL (<30)
[2023-06-03 21:15] LABS: ALBUMIN 4.7 G/DL (3.2-5.2); ALKALINE PHOSPHATASE 82 U/L (46-116); AST/SGOT < 8 U/L (<34); BILIRUBIN,DIRECT 0.2 MG/DL (<0.4); BILIRUBIN,TOTAL 0.5 MG/DL (0.3-1.2); BLOOD UREA NITROGEN 7 MG/DL (9-23); CALCIUM LEVEL 9.5 MG/DL (8.5-10.1); CARBON DIOXIDE LEVEL 28 MMOL/L (20-31); CHLORIDE LEVEL 107 MMOL/L (98-107); CREATININE FOR GFR 0.82 MG/DL (0.70-1.30); GLOMERULAR FILTRATION RATE > 60.0 (>60); GLUCOSE, FASTING 86 MG/DL (60-100); SODIUM LEVEL 145 MMOL/L (136-145); TOTAL PROTEIN 7.6 G/DL (5.7-8.2)
[2023-06-03 21:43] LABS: ALT/SGPT 31 U/L (7.0-40)
[2023-06-03] MEDS ORDERED: HOME MED LIST COMPLETE! XX SCH (22:45)
[2023-06-03] MEDS ORDERED: hydrOXYzine 50 MG TAB PO ONE (22:55)
[2023-06-09] MEDS ORDERED: LEVAINH INH (10:47)
== END 2023-06-04 12:35 | disposition home or self-care (01) ==
LOC: M ED 19:23
DX: F43.0 Acute stress reaction (principal); F19.10 Other psychoactive substance abuse, uncomplicated; Z76.5 Malingerer [conscious simulation]; F10.10 Alcohol abuse, uncomplicated; F12.10 Cannabis abuse, uncomplicated; F60.2 Antisocial personality disorder; Z91.010 Allergy to peanuts

== ENCOUNTER 2023-06-19 00:21 | Emergency (ER) | payer OTHER ==
[~2023-06-19] VITALS: Ht 167.6 cm; Wt 81.5 kg
[2023-06-19 00:48] VITALS: BP 142/102; TEMP 98.9; O2SAT 99
== END 2023-06-19 06:40 | disposition left against medical advice (07) ==
LOC: EDBD 00:21 → M ED 00:21
DX: Z53.21 Procedure and treatment not carried out due to patient leaving prior to being seen by health care provider (principal)

== ENCOUNTER 2023-06-26 05:28 | Emergency (ER) | payer OTHER ==
[~2023-06-26] VITALS: Ht 167.6 cm; Wt 82.5 kg
[2023-06-26 05:35] VITALS: BP 138/96; TEMP 97.6; O2SAT 99
== END 2023-06-26 07:30 | disposition left against medical advice (07) ==
LOC: M ED 05:28
DX: Z53.21 Procedure and treatment not carried out due to patient leaving prior to being seen by health care provider (principal)

== ENCOUNTER 2023-06-27 02:01 | Emergency (ER) | payer OTHER ==
[~2023-06-27] VITALS: Ht 170.2 cm; Wt 81.8 kg
[2023-06-27 02:06] VITALS: BP 150/110; TEMP 97.9; O2SAT 100
[2023-06-27 03:43] LABS: BASO # 0.1 10^3/uL (0.0-0.2); BASO % 0.8 % (0.0-1.0); EOS # 0.1 10^3/uL (0.0-0.5); EOS % 1.8 % (0.0-3.0); HEMATOCRIT 45.4 % (42.0-52.0); HEMOGLOBIN 15.3 g/dl (13.5-17.5); LYMPH # 2.4 10^3/uL (1.5-5.0); LYMPH % 36.5 % (24.0-44.0); MEAN CORPUSCULAR HEMOGLOBIN 31.2 pg (27.0-33.0); MEAN CORPUSCULAR HGB CONC 33.7 g/dl (32.0-36.5); MEAN CORPUSCULAR VOLUME 92.7 fl (80.0-96.0); MONO # 0.8 10^3/uL (0.0-0.8); MONO % 11.8 % (2.0-8.0); NEUTROPHILS # 3.2 10^3/uL (1.5-8.5); NEUTROPHILS % 48.8 % (36.0-66.0); PLATELET COUNT, AUTOMATED 265 10^3/uL (150-450); WHITE BLOOD COUNT 6.6 10^3/uL (4.0-10.0)
[2023-06-27 03:49] LABS: CK-MB VALUE MASS 1.9 NG/ML (<3.6)
[2023-06-27 03:50] LABS: BLOOD UREA NITROGEN 6 MG/DL (9-23); CALCIUM LEVEL 9.5 MG/DL (8.5-10.1); CARBON DIOXIDE LEVEL 26 MMOL/L (20-31); CHLORIDE LEVEL 103 MMOL/L (98-107); CREATININE FOR GFR 0.85 MG/DL (0.70-1.30); GLOMERULAR FILTRATION RATE > 60.0 (>60); GLUCOSE, FASTING 98 MG/DL (60-100); MAGNESIUM LEVEL 1.9 MG/DL (1.8-2.4); POTASSIUM SERUM 3.7 MMOL/L (3.5-5.1); SODIUM LEVEL 140 MMOL/L (136-145)
[2023-06-27 03:52] LABS: CPK CREATINE PHOSPHOKINASE 277 U/L (46-171); MB/CK RELATIVE INDEX 0.68 (< OR =4)
== END 2023-06-27 03:41 | disposition left against medical advice (07) ==
LOC: M ED 02:01
DX: Z53.21 Procedure and treatment not carried out due to patient leaving prior to being seen by health care provider (principal)

== ENCOUNTER 2023-07-24 21:29 | Emergency (ER) | payer OTHER ==
[~2023-07-24] VITALS: Ht 167.6 cm; Wt 83.7 kg
[2023-07-24 23:39] VITALS: BP 129/78; TEMP 98.2; O2SAT 99
== END 2023-07-24 23:58 | disposition home or self-care (01) ==
LOC: M ED 21:29
DX: S49.91XA Unspecified injury of right shoulder and upper arm, initial encounter (principal); Z91.010 Allergy to peanuts; Z79.899 Other long term (current) drug therapy

== ENCOUNTER → 2024-07-18 | Outpatient (CLI) | payer OTHER | LOC: M RAD 13:10 | PROVIDERS: ATTEND Physician Assistant Medical | DX: R22.1 Localized swelling, mass and lump, neck (principal) ==

== ENCOUNTER 2025-03-03 01:02 | Emergency (ER) | payer MEDICAID, OTHER, SELFPAY ==
[~2025-03-03] VITALS: Ht 170.2 cm; Wt 97.9 kg
[~2025-03-03 01:02] MED LIST changes: +LEVA15HF2 INH; -LEVAINH INH
[2025-03-03 08:15] LABS: BASO % 0.4 % (0.0-1.0); HEMATOCRIT 44.2 % (42.0-52.0); HEMOGLOBIN 14.8 g/dl (13.5-17.5); LYMPH % 19.6 % (24.0-44.0); MEAN CORPUSCULAR HEMOGLOBIN 30.6 pg (27.0-33.0); MEAN CORPUSCULAR HGB CONC 33.5 g/dl (32.0-36.5); MEAN CORPUSCULAR VOLUME 91.5 fl (80.0-96.0); MONO # 1.2 10^3/uL (0.0-0.8); MONO % 11.8 % (2.0-8.0); NEUTROPHILS # 6.9 10^3/uL (1.5-8.5); NEUTROPHILS % 67.8 % (36.0-66.0); PLATELET COUNT, AUTOMATED 254 10^3/uL (150-450); RED BLOOD COUNT 4.83 10^6/uL (4.30-6.10); WHITE BLOOD COUNT 10.2 10^3/uL (4.0-10.0)
[2025-03-03 08:23] LABS: KETONE, URINE AUTO RFX 2+ mg/dL (NEGATIVE); MUCUS, URINE RFX SMALL (NEGATIVE); NITRITE, URINE AUTO RFX NEGATIVE (NEGATIVE); RBC, URINE AUTO RFX 1 /HPF (0-3); SQUAM EPITHELIAL CELL UR AURFX 0 /HPF (0-6); WBC, URINE AUTO RFX 3 /HPF (0-3)
[2025-03-03 08:35] LABS: BLOOD UREA NITROGEN 11 MG/DL (9-23); CALCIUM LEVEL 9.7 MG/DL (8.5-10.1); CARBON DIOXIDE LEVEL 26 MMOL/L (20-31); CHLORIDE LEVEL 104 MMOL/L (98-107); CK-MB VALUE MASS 9.1 NG/ML (<3.6); CREATININE FOR GFR 0.86 MG/DL (0.70-1.30); GLOMERULAR FILTRATION RATE > 90.0 (>60); GLUCOSE, FASTING 111 MG/DL (60-100); POTASSIUM SERUM 4.6 MMOL/L (3.5-5.1); SODIUM LEVEL 145 MMOL/L (136-145)
[2025-03-03 08:41] LABS: LEUKOCYTE ESTERASE UR AUTO RFX TRACE (NEGATIVE)
[2025-03-03 08:42] LABS: CPK CREATINE PHOSPHOKINASE 1634 U/L (46-171); MB/CK RELATIVE INDEX 0.55 (< OR =4)
[2025-03-03] MEDS ORDERED: ISOVUE-370 76% 100ML VIAL As Ordered ONE (08:45)
[2025-03-03] MEDS: NS (Normal Saline) 0.9% 1,000 ML IV ONE ×2 (09:41→12:59)
[2025-03-03] MEDS: KETOROLAC 30 MG/ML 1ML VIAL IV ONE (11:21)
[2025-03-03 13:29] VITALS: BP 128/74; TEMP 98.5; O2SAT 94
== END 2025-03-03 14:04 | disposition home or self-care (01) ==
LOC: M ED 01:02
DX: M54.50 Low back pain, unspecified (principal); E86.0 Dehydration; W22.8XXA Striking against or struck by other objects, initial encounter; Y92.149 Unspecified place in prison as the place of occurrence of the external cause; Y93.89 Activity, other specified; Y99.9 Unspecified external cause status; J45.909 Unspecified asthma, uncomplicated; K76.0 Fatty (change of) liver, not elsewhere classified; R94.31 Abnormal electrocardiogram [ECG] [EKG]
CPT/HCPCS: 74177; 80048; 81001; 82550; 82553; 84484; 85025; 87086; 93005; 96361; 96374; 99284; J1885; Q9967

== ENCOUNTER 2025-03-06 01:48 | Emergency (ER) | payer MEDICAID ==
[~2025-03-06] VITALS: Ht 170.2 cm; Wt 90.9 kg
[2025-03-06 06:39] VITALS: BP 137/84; TEMP 99.5; O2SAT 93
== END 2025-03-06 07:36 | disposition left against medical advice (07) ==
LOC: EDBD 01:48 → M ED 01:48
DX: Z53.21 Procedure and treatment not carried out due to patient leaving prior to being seen by health care provider (principal)

== ENCOUNTER 2025-03-08 06:23 | Emergency (ER) | payer MEDICAID ==
[~2025-03-08] VITALS: Ht 170.2 cm; Wt 99.2 kg
[2025-03-08 06:24] VITALS: BP 143/87; TEMP 97.9; O2SAT 96
[2025-03-08] MEDS ORDERED: NAPR-837 PO (07:34)
[2025-03-08] MEDS: NAPROXEN 250 MG TAB PO ONE (07:39)
== END 2025-03-08 07:50 | disposition home or self-care (01) ==
LOC: M ED 06:23
DX: S90.212A Contusion of left great toe with damage to nail, initial encounter (principal); X58.XXXA Exposure to other specified factors, initial encounter; Y92.9 Unspecified place or not applicable; Y93.9 Activity, unspecified; Y99.9 Unspecified external cause status

== ENCOUNTER 2025-03-08 20:20 | Emergency (ER) | payer MEDICAID ==
[~2025-03-08] VITALS: Ht 170.2 cm; Wt 88.6 kg
[~2025-03-08 20:20] MED LIST changes: +NAPR-837 PO
[2025-03-08 20:50] LABS: HEMATOCRIT 40.3 % (42.0-52.0); HEMOGLOBIN 13.7 g/dl (13.5-17.5); MEAN CORPUSCULAR HEMOGLOBIN 30.4 pg (27.0-33.0); MEAN CORPUSCULAR VOLUME 89.4 fl (80.0-96.0); PLATELET COUNT, AUTOMATED 190 10^3/uL (150-450); RED BLOOD COUNT 4.51 10^6/uL (4.30-6.10); WHITE BLOOD COUNT 4.5 10^3/uL (4.0-10.0)
[2025-03-08 21:17] LABS: ETHYL ALCOHOL (ETHANOL) < 0.003 % (0.000-0.010)
[2025-03-08 21:19] LABS: ALBUMIN 4.5 G/DL (3.2-5.2); ALKALINE PHOSPHATASE 69 U/L (40-129); ALT/SGPT 122 U/L (7.0-40); AST/SGOT 240 U/L (<34); BILIRUBIN,DIRECT 0.4 MG/DL (<0.4); BILIRUBIN,TOTAL 0.8 MG/DL (0.3-1.2); BLOOD UREA NITROGEN 10 MG/DL (9-23); CALCIUM LEVEL 8.9 MG/DL (8.5-10.1); CARBON DIOXIDE LEVEL 32 MMOL/L (20-31); CHLORIDE LEVEL 94 MMOL/L (98-107); CREATININE FOR GFR 0.74 MG/DL (0.70-1.30); GLOMERULAR FILTRATION RATE > 90.0 (>60); GLUCOSE, FASTING 80 MG/DL (60-100); POTASSIUM SERUM 3.1 MMOL/L (3.5-5.1); SALICYLATE LEVEL < 3.0 MG/DL (<30); SODIUM LEVEL 137 MMOL/L (136-145); TOTAL PROTEIN 7.6 G/DL (5.7-8.2)
[2025-03-08 21:21] LABS: THYROID STIMULATING HORMONE 6.181 uIU/ML (0.55-4.78)
[2025-03-08 21:42] LABS: BARBITURATES URINE NEGATIVE (NEGATIVE); BENZODIAZEPINES URINE NEGATIVE (NEGATIVE); COCAINE METABOLITE URINE NEGATIVE (NEGATIVE); METHADONE URINE NEGATIVE (NEGATIVE); OPIATES URINE NEGATIVE (NEGATIVE); PHENCYCLIDINE URINE NEGATIVE (NEGATIVE)
[2025-03-08 21:50] LABS: AMPHETAMINES LEVEL URINE POSITIVE (NEGATIVE); CANNABINOIDS URINE POSITIVE (NEGATIVE)
[2025-03-08] MEDS: POTASSIUM CHLORIDE 10MEQ SR TABLET PO ONE (22:29)
[2025-03-09] MEDS: ALBUTEROL 90 MCG/ACT 8GM HFA INHALER INH PRN (03:02)
[2025-03-09 08:11] VITALS: BP 151/86; TEMP 98.1; O2SAT 98
[2025-03-09 08:40] LABS: HEPATITIS B SURFACE ANTIGEN NEGATIVE (NEGATIVE)
[2025-03-09 09:02] LABS: HEPATITIS B CORE ANTIBODY IGM NEGATIVE (NEGATIVE); HEPATITIS C VIRUS ABY INDEX 0.03 INDEX (<0.8)
[2025-03-10] MEDS ORDERED: VENTAER INH (11:49)
== END 2025-03-09 11:24 | disposition home or self-care (01) ==
LOC: M ED 20:20
DX: Z76.5 Malingerer [conscious simulation] (principal); F19.10 Other psychoactive substance abuse, uncomplicated; R74.01 Elevation of levels of liver transaminase levels; J45.909 Unspecified asthma, uncomplicated; F12.10 Cannabis abuse, uncomplicated; F41.9 Anxiety disorder, unspecified; F43.10 Post-traumatic stress disorder, unspecified; G47.00 Insomnia, unspecified

== ENCOUNTER 2025-03-10 07:00 | Emergency (ER) | payer MEDICAID ==
[~2025-03-10] VITALS: Ht 170.2 cm; Wt 98.5 kg
[2025-03-10] MEDS: ALBUTEROL SULFATE 2.5MG/0.5ML INH CONCENTRATE NEB SOLN NEB ONE (08:37)
[2025-03-10] MEDS: ACETAMINOPHEN 325 MG TAB PO ONE (09:55)
[2025-03-10 11:22] LABS: HEMATOCRIT 36.4 % (42.0-52.0); HEMOGLOBIN 12.5 g/dl (13.5-17.5); MEAN CORPUSCULAR HEMOGLOBIN 31.1 pg (27.0-33.0); MEAN CORPUSCULAR HGB CONC 34.3 g/dl (32.0-36.5); MEAN CORPUSCULAR VOLUME 90.5 fl (80.0-96.0); PLATELET COUNT, AUTOMATED 177 10^3/uL (150-450); RED BLOOD COUNT 4.02 10^6/uL (4.30-6.10)
[2025-03-10 11:30] VITALS: BP 123/70; O2SAT 95
[2025-03-10 11:47] VITALS: TEMP 97.8
[2025-03-10 11:47] LABS: BLOOD UREA NITROGEN 8 MG/DL (9-23); CARBON DIOXIDE LEVEL 27 MMOL/L (20-31); CHLORIDE LEVEL 99 MMOL/L (98-107); CREATININE FOR GFR 0.64 MG/DL (0.70-1.30); GLOMERULAR FILTRATION RATE > 90.0 (>60); GLUCOSE, FASTING 86 MG/DL (60-100); MAGNESIUM LEVEL 1.9 MG/DL (1.8-2.4); POTASSIUM SERUM 3.3 MMOL/L (3.5-5.1); SODIUM LEVEL 137 MMOL/L (136-145)
[2025-03-10] MEDS ORDERED: VENTAER INH (11:49)
[2025-03-10] MEDS: POTASSIUM CHLORIDE 10MEQ SR TABLET PO ONE (12:02)
== END 2025-03-10 12:13 | disposition home or self-care (01) ==
LOC: M ED 07:00
DX: R06.2 Wheezing (principal); F43.10 Post-traumatic stress disorder, unspecified; Z91.010 Allergy to peanuts

== ENCOUNTER → 2025-03-16 | Outpatient (CLI) | payer MEDICAID | LOC: M RAD 10:47 | PROVIDERS: ATTEND Internal Medicine Addiction Medicine | DX: R68.84 Jaw pain (principal); S02.652A Fracture of angle of left mandible, initial encounter for closed fracture; S02.601A Fracture of unspecified part of body of right mandible, initial encounter for closed fracture; Y04.0XXA Assault by unarmed brawl or fight, initial encounter; Y92.149 Unspecified place in prison as the place of occurrence of the external cause; Y93.9 Activity, unspecified; Y99.8 Other external cause status ==